=== PATIENT | female | born 1985 | race Caucasian/White ===

== ENCOUNTER 2021-12-05 13:22 | Emergency (ER) | payer BC, SELFPAY ==
--- NOTE | ~2021-12-05 | XR_ITS ---
EXAMINATION: XR CHEST CLINICAL INFORMATION: Shortness of breath, chest pain COMPARISON: None TECHNIQUE: 2 views of the chest were obtained. FINDINGS: The lungs are clear. There is no pneumothorax or pleural reaction. No airspace consolidation or effusion. The heart is normal in size. The hilar and mediastinal contours and bony structures are unremarkable. There are surgical clips right upper quadrant abdomen, possibly from prior cholecystectomy. XR/XR chest 2V IMPRESSION: Unremarkable examination.
[2021-12-05 13:25] VITALS: BP 158/110; PULSE 92; RESP 18; TEMP 36.6; O2SAT 100
--- NOTE | 2021-12-05 13:30 | ECG_ITS ---
Test Reason : chest pain Blood Pressure : / mmHG Vent. Rate : 081 BPM Atrial Rate : 081 BPM P-R Int : 120 ms QRS Dur : 092 ms QT Int : 346 ms P-R-T Axes : -05 013 037 degrees QTc Int : 401 ms Normal sinus rhythm Nonspecific ST abnormality Abnormal ECG No previous ECGs available Referred By: Generic ED Physician Electronically Signed By:Jose Garcia
--- NOTE | 2021-12-05 14:07 | ED.CHESTPAIN ---
HPI - Chest Pain General Chief Complaint: Chest Pain Stated Complaint: CHEST PAIN Time Seen by Provider: 12/05/21 13:58 Source: patient Mode of arrival: ambulatory Limitations: no limitations History of Present Illness HPI narrative: Patient is a 36-year-old female with a past medical history of hypertension. She presents emergency department for evaluation of chest pain, shortness of breath, feeling flushed and tremulous this morning. States that 0615 this morning while at rest she developed right-sided chest pain that lasted about 1-1/2 hours and was intermittent and stabbing. Eventually this resolved and then around lunch time returned again. However she felt pain radiating from the right side of her chest to her sternum and was feeling flushed and short of breath. She denies current or recent fevers, chills, lightheadedness dizziness, neck pain, palpitations, nausea, vomiting, abdominal pain, possibility of has copper IUD. Denies past history of DVT/PE, but does report a paternal history of blood clots, he is a cigarette smoker, no recent immobilization, surgery, extensive travel, no erythema/swelling/pain to the legs. She is being followed by Cardiology through [facility]. After receiving Pfizer vaccination in July 2021 she experienced a reaction causing severe increase in her blood pressure, and has since required treatment for hypertension. Her retail business development manager was concerned about and irregular heart beat, so she recently had a Holter monitor which was removed yesterday and she needs to mail back, no results yet. Ten days ago chlorthalidone 25 mg was added to her regimen of metoprolol succinate 25 mg. MD complaint: chest pain Onset (ago): hour(s) Timing of current episode: episodic Prior episodes: Yes Onset: during rest Pain location: substernal and right chest Pain radiation: none Severity: moderate Pain scale (0-10): 4 Quality: other (Stabbing) Treatment prior to arrival: none Risk Factors Coronary artery disease risk factors: smoking history Thoracic aortic dissection risk factors: none Related Data On Oral Contraceptives: No Previous Rx's Medication Instructions Recorded prednisone 20 mg tablet 20 mg PO .COMPLEX #18 tab 06/17/21 Allergies Allergy/AdvReac Type Severity Reaction Status Date / Time Penicillins Allergy Mild mild Verified 12/05/21 13:24 sumatriptan [From Imitrex] Allergy Mild mild Verified 12/05/21 13:24 amlodipine Allergy Rash Verified 12/05/21 13:25 Review of Systems Review of Systems: Constitutional : No Fever, No Chills ENT/Mouth : No sore throat, No Rhinorrhea, No Swallowing Difficulty Eyes: No Eye Pain, No Swelling, No Redness Cardiovascular : No Chest Pain, positive SOB, No Orthopnea, no Edema Respiratory : No Cough, No Sputum, No Wheezing, positive dyspnea Gastrointestinal : No Nausea, No Vomiting, No Diarrhea, No abdominal Pain, No Hematochezia, No Melena Genitourinary : No Dysuria, No Urinary Frequency, No Hematuria Musculoskeletal : No joint pain, No Myalgias Skin : No Skin Lesions, No rash Neuro : No Weakness, No Numbness, No Dizziness, No Headache Psych : No Anxiety/Panic, No Depression Heme/Lymph: No Bruising, No Lymphadenopathy Endocrine : No Polyuria, No Polydipsia ? All other systems reviewed and are negative [facility] Past Medical History Attestation statement: The following information was validated with the patient. Social History Social History Advance Directives: No Advance Directives Information Provided: No Patient : No Physical Exam Vital Signs: Vital Signs: Last Vital Signs Temp 97.9 F 12/05/21 15:10 Pulse 79 12/05/21 15:10 Resp 16 12/05/21 15:10 BP 127/92 H 12/05/21 15:10 Pulse Ox 99 12/05/21 15:10 BMI result Body Mass Index 0.0 Vital signs have been reviewed as normal and appeared to be correct. Blood pressure normal.? Heart rate normal.? Respiration rate normal. Temperature normal.? Oxygen saturation normal. Appearance: Alert.?Oriented to person, place and time. No acute distress.?Normal affect. Eyes: Pupils equal, round and reactive to light.? ENT: Pharynx normal.?? Neck: Normal inspection.? Neck supple.?? CVS: Heart sounds normal. Normal heart rate and rhythm.? Pulses normal.?? Respiratory: No respiratory distress.? Lung sounds clear to auscultation bilaterally?? Abdomen: Soft and non-tender. Normoactive bowel sounds. No pulsatile mass.?? Skin: Skin warm and dry.? Normal skin color.? Normal skin turgor.?? Extremities: No lower extremity edema.? No calf ttp? Neuro: Moves all extremities spontaneously. Sensation intact bilaterally. CN II-XII intact. No focal neuro deficits. Ambulates with normal steady gait. Course Course Course Narrative: The patient is a 36-year-old female being evaluated for chest pain and shortness of breath. Will obtain CBC to evaluate for leukocytosis/ anemia, CMP and lipase to evaluate for abnormal electrolytes /abnormal renal function/ abnormal hepatic function, EKG and troponin to evaluate for ischemia/ACS. Chest x-ray to evaluate for consolidation/ infiltrate/ mass/ pulmonary congestion. History and physical exam not consistent with AAA, aortic dissection, heart failure. Reevaluation(s) Reevaluation #1: EKG without concern for acute ischemia, troponin negative <3.5, unlikely to be ACS. CBC reveals mild leukocytosis 11.4. CMP is overall unremarkable. D-Dimer <150, unlikely to be pulmonary embolism. Chest x-ray is unremarkable, no consolidation, effusion, or pneumothorax. Currently, her chest pain has resolved. Discussed results and findings with patient, cleared for discharge home at this time she is afebrile, nontoxic appearing hemodynamically stable. Discussed reasons to return back to the emergency department. Advised contacting her primary care provider and her retail business development manager for follow-up in 1-3 days. Patient is agreeable with plan of care. Time: 16:30 [facility] - Chest Pain Medical Records Data Attestation: I reviewed the patient's medical records. Lab Data Attestation: I reviewed the patient's lab results. Result diagrams: 12/05/21 15:54 12/05/21 14:53 Labs: Lab Results 12/05/21 12/05/21 12/05/21 Range/Units 14:53 15:35 15:54 WBC 11.4 H (4.8-10.8) X10*3/uL RBC 4.79 (4.20-5.50) X10*6/uL Hgb 15.3 (12.0-16.0) g/dl Hct 43.4 (37.0-47.0) % MCV 90.6 (80.0-98.0) fL MCH 31.9 (27.0-33.0) pg MCHC 35.3 H (31.0-35.0) g/dl RDW 11.8 (11.0-16.0) % Plt Count 343 (160-400) X10*3/uL MPV 10.2 (9.4-12.3) fL Immature Gran % (Auto) 0.4 (0.0-0.4) % Neut % (Auto) 56.9 (45-73) % Lymph % (Auto) 30.8 (20-40) % [place] % (Auto) 6.7 (2-11) % Eos % (Auto) 4.4 H (0-4) % Baso % (Auto) 0.8 (0-2) % Lymph # (Auto) 3.5 (1.2-4.9) X10*3/uL [place] # (Auto) 0.8 (0.1-1.2) X10*3/uL Eos # (Auto) 0.5 H (0.0-0.4) X10*3/uL Baso # (Auto) 0.1 (0.0-0.2) X10*3/uL Abs Immat Gran (auto) 0.04 H (0.00-0.03) X10*3/uL Absolute Neuts (auto) 6.5 (2.0-8.3) x10*3/uL Absolute Nucleated RBC 0.000 (0.0-0.012) X10*3/uL Nucleated RBC % (auto) 0.0 (0.0-0.2) /100WBC D-Dimer High Sensitivty NG/ML Sodium 137 (135-145) mmol/L Potassium 4.4 (3.3-5.1) mmol/L Chloride 101 (96-108) mmol/L Carbon Dioxide 27 (22-29) mmol/L Anion Gap 13 (12-20) BUN 15 (9-16) mg/dL Creatinine 0.77 (0.5-1.4) mg/dL Estim Creat Clear Calc TNP Estimated GFR > 60 Random Glucose 86 (60-115) mg/dL Calcium 10.6 H (8.4-10.2) mg/dL Total Bilirubin 0.4 (0.0-1.0) mg/dL AST 27 (5-31) U/L ALT 36 H (0-31) U/L Alkaline Phosphatase 54 (39-117) U/L Troponin I High Sens (<3.5-17.0) ng/L Total Protein 7.7 (6.5-8.0) g/dL Albumin 4.9 (3.5-5.0) g/dL Beta HCG, Quant mIU/mL COVID-19 (NATHAN) Negative (Negative) COVID-19 Clin Com See Note 12/05/21 12/05/21 12/05/21 Range/Units 15:54 15:54 15:54 WBC (4.8-10.8) X10*3/uL RBC (4.20-5.50) X10*6/uL Hgb (12.0-16.0) g/dl Hct (37.0-47.0) % MCV (80.0-98.0) fL MCH (27.0-33.0) pg MCHC (31.0-35.0) g/dl RDW (11.0-16.0) % Plt Count (160-400) X10*3/uL MPV (9.4-12.3) fL Immature Gran % (Auto) (0.0-0.4) % Neut % (Auto) (45-73) % Lymph % (Auto) (20-40) % [place] % (Auto) (2-11) % Eos % (Auto) (0-4) % Baso % (Auto) (0-2) % Lymph # (Auto) (1.2-4.9) X10*3/uL [place] # (Auto) (0.1-1.2) X10*3/uL Eos # (Auto) (0.0-0.4) X10*3/uL Baso # (Auto) (0.0-0.2) X10*3/uL Abs Immat Gran (auto) (0.00-0.03) X10*3/uL Absolute Neuts (auto) (2.0-8.3) x10*3/uL Absolute Nucleated RBC (0.0-0.012) X10*3/uL Nucleated RBC % (auto) (0.0-0.2) /100WBC D-Dimer High Sensitivty < 150 NG/ML Sodium (135-145) mmol/L Potassium (3.3-5.1) mmol/L Chloride (96-108) mmol/L Carbon Dioxide (22-29) mmol/L Anion Gap (12-20) BUN (9-16) mg/dL Creatinine (0.5-1.4) mg/dL Estim Creat Clear Calc Estimated GFR Random Glucose (60-115) mg/dL Calcium (8.4-10.2) mg/dL Total Bilirubin (0.0-1.0) mg/dL AST (5-31) U/L ALT (0-31) U/L Alkaline Phosphatase (39-117) U/L Troponin I High Sens < 3.5 (<3.5-17.0) ng/L Total Protein (6.5-8.0) g/dL Albumin (3.5-5.0) g/dL Beta HCG, Quant < 2 mIU/mL COVID-19 (NATHAN) (Negative) COVID-19 Clin Com ECG Data ECG #1: Attestation: I personally reviewed and interpreted this ECG as follows: ECG interpretation date: 12/05/21 ECG interpretation time: 14:11 Interpretation: Rate: 81 Rhythm:? Normal sinus rhythm [place]:? Normal Normal P waves.? Normal [place].?? Normal QRS complex.?? ST T wave :??Nonspecific ST abnormality qTC: 401 prior studies:? No prior The study has been interpreted contemporaneously by me. Discharge Plan Discharge Clinical Impression: Chest pain Patient Disposition: Home, Self-Care Instructions: Chest Pain (ED) Additional Instructions: Your EKG was normal. Your blood work was normal, troponin which is a marker for the heart was normal, D-dimer which is a marker looking for a pulmonary embolism was normal. Please contact your primary care provider in addition to your retail business development manager to schedule follow-up appointment in 1-3 days. If you develop any new or worsening symptoms or concerns you may always return back to the emergency department this might include but is not limited to severe worsening chest pain, palpitations, dizziness/lightheadedness, nausea persistent vomiting, shortness of breath, difficulty breathing, leg pain or swelling. Prescriptions: No Action prednisone 20 mg tablet 20 mg PO .COMPLEX Qty: 18 0RF Rx Instructions: 20 mg PO 3 p.o. daily for 3 days followed by 2 p.o. daily for 3 days followed by 1 p.o. daily for 3 days; Interventions: ED Discharge Assessment Last Done: 12/05/21 17:09 Discharge Date/Time: 12/05/21 17:11
[2021-12-05 14:25] VITALS: BP 132/90; PULSE 74; RESP 23; O2SAT 99
[2021-12-05] MEDS: Acetaminophen 325 MG TABLET 975 MG PO (14:58)
[2021-12-05] MEDS: Ibuprofen 600 MG TABLET PO (14:58)
[2021-12-05 15:10] VITALS: BP 127/92; PULSE 79; RESP 16; TEMP 36.6; O2SAT 99
[2021-12-05 15:24] LABS: Alanine Aminotransferase 36 U/L (0-31); Albumin Level 4.9 g/dL (3.5-5.0); Alkaline Phosphatase 54 U/L (39-117); Anion Gap 13 (12-20); Aspartate Amino Transferase 27 U/L (5-31); Bilirubin Total 0.4 mg/dL (0.0-1.0); Blood Urea Nitrogen 15 mg/dL (9-16); Calcium 10.6 mg/dL (8.4-10.2); Carbon Dioxide 27 mmol/L (22-29); Chloride 101 mmol/L (96-108); Estimated Glomerular Filt Rate > 60; Glucose Random 86 mg/dL (60-115); Potassium 4.4 mmol/L (3.3-5.1); Sodium 137 mmol/L (135-145); Total Protein 7.7 g/dL (6.5-8.0)
[2021-12-05 16:04] LABS: MANUAL DIFF FLAG NO
[2021-12-05 16:07] LABS: Basophils Absolute Auto 0.1 X10*3/uL (0.0-0.2); Basophils Percent Auto 0.8 % (0-2); Eosinophils Absolute Auto 0.5 X10*3/uL (0.0-0.4); Eosinophils Percent Auto 4.4 % (0-4); Hematocrit 43.4 % (37.0-47.0); Hemoglobin 15.3 g/dl (12.0-16.0); Imm Gran Abs Auto 0.04 X10*3/uL (0.00-0.03); Imm Gran Pct Auto 0.4 % (0.0-0.4); Lymphocytes Absolute Auto 3.5 X10*3/uL (1.2-4.9); Lymphocytes Percent Auto 30.8 % (20-40); Mean Corpuscular HGB Conc 35.3 g/dl (31.0-35.0); Mean Corpuscular Hemoglobin 31.9 pg (27.0-33.0); Mean Corpuscular Volume 90.6 fL (80.0-98.0); Mean Platelet Volume 10.2 fL (9.4-12.3); Monocytes Absolute Auto 0.8 X10*3/uL (0.1-1.2); Monocytes Percent Auto 6.7 % (2-11); Neutrophils Absolute Auto 6.5 x10*3/uL (2.0-8.3); Neutrophils Percent Auto 56.9 % (45-73); Platelet Count 343 X10*3/uL (160-400); Red Blood Count 4.79 X10*6/uL (4.20-5.50); Red Cell Distribution Width 11.8 % (11.0-16.0); White Blood Count 11.4 X10*3/uL (4.8-10.8)
[2021-12-05 16:21] LABS: D Dimer High Sensitivity < 150 NG/ML
[2021-12-05 16:25] LABS: HCG Quantitative < 2 mIU/mL; Troponin-I High Sensitivity < 3.5 ng/L (<3.5-17.0)
[2021-12-05 16:29] LABS: COVID-19 Test Negative (Negative)
== END 2021-12-05 17:11 | disposition home or self-care (01) ==
PROVIDERS: Nurse Practitioner Family; Emergency Provider Emergency Medicine; PCP Physician Assistant Medical
DX: R07.9 Chest pain, unspecified (principal); Z20.822 Contact with and (suspected) exposure to COVID-19; I10 Essential (primary) hypertension
CPT/HCPCS: 36415; 71046; 80053; 84484; 84702; 85025; 85379; 87635; 93005; 99283; 99284